=== PATIENT | female | born 1990 | race Asian ===

== ENCOUNTER 2018-08-19 13:25 | Inpatient (IN) | payer SELFPAY ==
[~2018-08-19] VITALS: Ht 169 cm; Wt 62.1 kg
[2018-08-24] MEDS ORDERED: LR 1,000 ML IV ONE (10:46)
[2018-08-24] MEDS ORDERED: CEFAZOLIN 2 GM IVPB PREMIX 50 ML IV ONE (11:00)
[2018-08-24] MEDS ORDERED: METOCLOPRAMIDE HCL 10 MG/2 ML VIAL IVP ONE (11:00)
[2018-08-24] MEDS ORDERED: CITRIC ACID/SODIUM CITRATE 30 ML UDC PO ONE (11:00)
[2018-08-24 13:00] LABS: BASOPHILS # (AUTO) 0.1 K/uL (0.0-0.2); EOSINOPHILS # (AUTO) 0.1 K/uL (0.0-0.4); EOSINOPHILS % (AUTO) 1.8 % (0.0-4.0); HEMATOCRIT 39.3 % (36-48); HEMOGLOBIN 12.5 g/dL (12.0-16.0); LYMPHOCYTES # (AUTO) 1.1 K/uL (1.0-5.5); LYMPHOCYTES % (AUTO) 18.9 % (20.5-51.5); MEAN CORPUSCULAR HEMOGLOBIN 29 pg (27-31); MEAN CORPUSCULAR HGB CONC 32 % (32-36); MEAN CORPUSCULAR VOLUME 92 fL (79.0-98.0); MONOCYTES # (AUTO) 0.3 K/uL (0.0-1.0); NEUTROPHILS # (AUTO) 4.4 K/uL (1.8-7.7); NEUTROPHILS % (AUTO) 73.3 % (40.0-70.0); PLATELET COUNT (AUTO) 196 K/uL (130-430); RED BLOOD CELL COUNT(AUTO) 4.26 MIL/uL (4.2-6.2); RED CELL DISTRIBUTION WIDTH 14.5 % (9.0-15.0); WHITE BLOOD COUNT (AUTO) 6.1 K/uL (4.8-10.8)
[2018-08-24 15:17] VITALS: BP_SYST 107
[2018-08-24] MEDS ORDERED: LR 1,000 ML IV SCH (16:32)
[2018-08-24] MEDS ORDERED: METOCLOPRAMIDE HCL 10 MG/2 ML VIAL IVP PRN (16:45)
[2018-08-24] MEDS ORDERED: MORPHINE SULFATE 10MG/10ML PF AMP SP SCH (16:45)
[2018-08-24] MEDS ORDERED: NALOXONE HCL 0.4 MG/ML AMP (NARCAN) IVP PRN (16:45)
[2018-08-24] MEDS ORDERED: ONDANSETRON HCL 4 MG/2 ML VIAL IVP PRN (16:45)
[2018-08-24] MEDS ORDERED: DIPHENHYDRAMINE INJ 50 MG/ML VIAL IM PRN (16:45)
[2018-08-24] MEDS ORDERED: KETOROLAC TROMETHAMINE 60 MG/2 ML VIAL IM PRN (16:45)
[2018-08-24 17:06] VITALS: BP_SYST 115
[2018-08-24] MEDS ORDERED: OXYTOCIN/0.9 % SODIUM CHLORIDE 1,000 ML IV ONE ×2 (17:28→19:19)
[2018-08-24] MEDS ORDERED: ANUSOL 1 EA SUPP.RECT (PREPARATION H) RC PRN (19:30)
[2018-08-24] MEDS ORDERED: LANOLIN 7 GM OINT. TP PRN (19:30)
[2018-08-24] MEDS ORDERED: TEMAZEPAM 15 MG CAPSULE PO PRN (21:00)
[2018-08-25] MEDS: CEFAZOLIN 2 GM IVPB PREMIX 100 ML IV SCH ×2 (00:24→09:18)
[2018-08-25] MEDS: IBUPROFEN 600 MG TABLET PO SCH ×4 (06:15→23:51)
[2018-08-25 07:59] LABS: EOSINOPHILS % (AUTO) 0.3 % (0.0-4.0); HEMATOCRIT 35.6 % (36-48); LYMPHOCYTES # (AUTO) 0.9 K/uL (1.0-5.5); LYMPHOCYTES % (AUTO) 8.1 % (20.5-51.5); MEAN CORPUSCULAR HEMOGLOBIN 30 pg (27-31); MEAN CORPUSCULAR HGB CONC 34 % (32-36); MEAN CORPUSCULAR VOLUME 89 fL (79.0-98.0); MONOCYTES # (AUTO) 0.4 K/uL (0.0-1.0); MONOCYTES % (AUTO) 3.9 % (1.7-9.3); NEUTROPHILS % (AUTO) 87.7 % (40.0-70.0); PLATELET COUNT (AUTO) 171 K/uL (130-430); RED BLOOD CELL COUNT(AUTO) 3.99 MIL/uL (4.2-6.2); RED CELL DISTRIBUTION WIDTH 14.7 % (9.0-15.0); WHITE BLOOD COUNT (AUTO) 11.3 K/uL (4.8-10.8)
[2018-08-25] MEDS ORDERED: OXYCODONE/ACETAMINOPHEN 5-325 TABLET PO PRN ×2 (10:00)
[2018-08-25] MEDS: DOCUSATE SODIUM 100 MG CAPSULE PO PRN ×2 (10:13→22:40)
[2018-08-25] MEDS: SIMETHICONE 80 MG TAB.CHEW PO PRN ×3 (10:13→22:42)
[2018-08-26] MEDS: SIMETHICONE 80 MG TAB.CHEW PO PRN ×2 (12:23→17:34)
[2018-08-26] MEDS: DOCUSATE SODIUM 100 MG CAPSULE PO PRN ×2 (12:24→21:20)
[2018-08-26] MEDS: IBUPROFEN 600 MG TABLET PO SCH ×3 (12:24→17:35)
[2018-08-27] MEDS: DOCUSATE SODIUM 100 MG CAPSULE PO PRN (12:07)
[2018-08-27] MEDS: IBUPROFEN 600 MG TABLET PO SCH (12:07)
[2018-08-27] MEDS ORDERED: ONDANSETRON HCL 4 MG/2 ML VIAL IVP ONE (15:40)
[2018-08-27] MEDS ORDERED: INSULIN REGULAR, HUMAN 100 UNITS/ML, 10 ML VIAL SUBCUT ONE (15:40)
[2018-08-27] MEDS ORDERED: MORPHINE SULFATE 10MG/10ML PF AMP EP ONE (15:40)
[2018-08-27] MEDS ORDERED: OXYTOCIN 10 UNIT/ML VIAL IM ONE (15:40)
[2018-08-27] MEDS ORDERED: CEFAZOLIN 2 GM IVPB PREMIX 50 ML IV ONE (15:40)
[2018-08-27] MEDS ORDERED: LR 1,000 ML IV.SOLN IV ONE (15:40)
== END 2018-08-27 13:37 | disposition home or self-care (01) | DRG 788 ==
LOC: SPU 08-24 10:20
PROVIDERS: ADMIT Obstetrics & Gynecology; ATTEND Obstetrics & Gynecology
PROC: 10D00Z1 Extraction of Products of Conception, Low, Open Approach (ICD-10-PCS; principal; 2018-08-24 13:30)
DX: O34.211 Maternal care for low transverse scar from previous cesarean delivery (principal); Z3A.39 39 weeks gestation of pregnancy; Z37.0 Single live birth; Z86.32 Personal history of gestational diabetes
CPT/HCPCS: 36415; 85025; 86886; 86900; 86901; J0690; J1815; J2274; J2405; J2590; J7120